=== PATIENT | female | born 1990 | race Caucasian/White ===

== ENCOUNTER 2016-11-29 13:53 | Emergency (ER) | payer BC ==
--- NOTE | 2016-11-29 14:40 | Emergency Department Record ---
History of Present Illness - General Chief complaint: Flank Pain Stated complaint: KIDNEY STONES? Time Seen by Provider: 11/29/16 14:39 Source: Patient Mode of Arrival: Ambulatory Limitations: No limitations - History of Present Illness Initial comments: 26 yo female presents with flank pain. She has a history or prior kidney stones about one year ago. The pain onset was this morning. It started on the right flank and now radiates down. She has some pain across the low back. No fevers. She has some associated nausea. No hematuria. She had renal stones last year in [place] that required stents and lithotripsy. Onset/Timin -: Hour(s) Location: LLQ, RLQ Radiation: L flank, R flank Severity: Moderate Severity scale (1-10): 6 Quality: Aching, Burning Consistency: Constant Improves with: None Worsens with: None LMP Date: 11/23/16 Gestational Age (wks) based on LMP: 0 Associated Symptoms: Nausea/vomiting - Related Data Home Medications Medication Instructions Recorded Confirmed Last Taken No Home Med [NO HOME MEDS] 11/29/16 11/29/16 Unknown Allergies Allergy/AdvReac Type Severity Reaction Status Date / Time No Known Drug Allergies Allergy Verified 11/29/16 14:24 Travel Screening - Travel/Exposure Within Last 30 Days Have you traveled within the last 30 days?: No - Travel/Exposure Within Last Year Have you traveled outside the [place] in the last year?: No - Additonal Travel Details Have you been exposed to anyone with a communicable illness?: No - Travel Symptoms Symptom Screening: None Review of Systems Constitutional: Denies: Chills, Fever, Malaise, Weakness Eyes: Denies: Eye discharge ENT: Denies: Congestion, Throat pain Respiratory: Denies: Cough Cardiovascular: Denies: Chest pain, Syncope Endocrine: Denies: Fatigue Gastrointestinal: Reports: Abdominal pain, Nausea, Vomiting. Denies: Diarrhea Genitourinary: Denies: Dysuria, Hematuria, Urgency Musculoskeletal: Denies: Arthralgia, Back pain, Neck pain Skin: Denies: Bruising, Change in color, Rash Neurological: Denies: Headache, Numbness, Weakness Psychiatric: Denies: Anxiety Hematological/Lymphatic: Denies: Blood Clots, Easy bleeding, Easy bruising, Swollen glands Past Medical History - SOCIAL HISTORY Smoking Status: Current every day smoker Alcohol Use: None Drug Use: None - RESPIRATORY Hx Respiratory Disorders: No - CARDIOVASCULAR Hx Cardio Disorders: No - NEURO Hx Neuro Disorders: No - GI Hx GI Disorders: No - Hx Kidney Stones: Yes (mutiple with stents) - ENDOCRINE Hx Diabetes: No Hx Thyroid Disease: No - MUSCULOSKELETAL Hx Musculoskeletal Disorders: No - PSYCH Hx Psych Problems: No - HEMATOLOGY/ONCOLOGY Hx Hematology/Oncology Disorders: No Family Medical History Any Significant Family History?: Yes Hx Cancer: Father Hx Diabetes: Mother Hx Heart Disease: Father, Mother, Grandparents Physical Exam - General General Appearance: Alert, Oriented x3, Cooperative, No acute distress Limitations: No limitations - Head Head exam: Normal inspection - Eye Eye exam: Normal appearance, PERRL. negative: Conjunctival injection, Periorbital swelling - ENT ENT exam: Normal exam, Mucous membranes moist Ear exam: Normal external inspection Nasal Exam: Normal inspection Mouth exam: Normal external inspection - Neck Neck exam: Normal inspection, Full ROM. negative: Tenderness - Respiratory Respiratory exam: Normal lung sounds bilaterally. negative: Respiratory distress - Cardiovascular Cardiovascular Exam: Regular rate, Normal rhythm, Normal heart sounds - GI/Abdominal GI/Abdominal exam: Soft - Rectal Rectal exam: Deferred - exam: Deferred - Extremities Extremities exam: Normal inspection, Full ROM, Normal capillary refill. negative: Pedal edema, Tenderness - Back Back exam: Reports: Normal inspection - Neurological Neurological exam: Alert, Normal gait, Oriented X3 - Psychiatric Psychiatric exam: Normal affect, Normal mood - Skin Skin exam: Dry, Intact, Normal color, Warm Course Vital Signs 11/29/16 14:18 Temperature 98.3 F Pulse Rate 76 Respiratory 20 Rate Blood Pressure 142/96 Pulse Ox 96 - Reevaluation(s) Reevaluation #1: UA is negative for HCG Few RBC's. 11/29/16 15:16 No acute changes on the CBC or CMP The CT is negative for any acute process 2mm non obstructing stone in the left kidney Her pain is well controlled DC home with instructions. 11/29/16 16:40 Medical Decision Making - Lab Data Result diagrams: 11/29/16 14:20 11/29/16 14:20 Disposition Disposition: Discharge Clinical Impression: Flank pain Disposition: Home, Self-Care Condition: (1) Good Instructions: Flank Pain (ED) Additional Instructions: Return if you have any return if pain, fever, vomiting or any new concerns Motrin for mild discomfort Forms: Patient Portal Access Time of Disposition: 16:44 Quality - Quality Measures Quality Measures: N/A - Blood Pressure Screening Does Patient Have Any of the Following: No Blood Pressure Classification: Hypertensive Reading Systolic Measurement: 142 Diastolic Measurement: 96 Screening for High Blood Pressure: < Pre-Hypertensive BP, F/U Documented > [ [id number]] Pre-Hypertensive Follow-up Interventions: Referral to alternative/primary care provider.
[2016-11-29 15:00] LABS: URINE APPEARANCE CLEAR; URINE BILIRUBIN NEGATIVE (NEGATIVE); URINE BLOOD SMALL (NEGATIVE); URINE COLOR YELLOW; URINE GLUCOSE (UA) NEGATIVE (NEGATIVE); URINE KETONE NEGATIVE (NEGATIVE); URINE LEUKOCYTE ESTERASE NEGATIVE (NEGATIVE); URINE NITRITE NEGATIVE (NEGATIVE); URINE PROTEIN NEGATIVE (NEGATIVE); URINE UROBILINOGEN 0.2 E.U./dL (0.20 - 1.00)
[2016-11-29] MEDS ORDERED: 0.9 % SODIUM CHLORIDE 1,000 ML BAG IV ONE (15:01)
[2016-11-29] MEDS ORDERED: KETOROLAC 30 MG/ML VIAL IVP ONE (15:01)
[2016-11-29] MEDS ORDERED: MORPHINE SULFATE 5 MG/ML PFS IVP ONE (15:01)
[2016-11-29] MEDS ORDERED: ONDANSETRON HCL IV 4 MG/2 ML VIAL IV ONE (15:01)
[2016-11-29 15:07] LABS: URINE BACTERIA FEW; URINE EPITHELIAL CELLS 0 - 2 (FEW); URINE WBC 0 - 2 (0-2/hpf)
[2016-11-29 15:11] LABS: BASO % 0.7 % (0-6); EOS % 1.5 % (0-6); GRAN % 57.5 % (47-80); HEMATOCRIT 42.9 % (35.0-47.0); HEMOGLOBIN 14.4 gm/dl (11.6-16.0); LYMPH % 33.8 % (16-45); MEAN CELL VOLUME 89.6 fl (81-97); MEAN CORPUSCULAR HEMOGLOBIN 30.1 pg (27-33); MEAN CORPUSCULAR HGB CONC 33.6 g/dl (32-36); MEAN PLATELET VOLUME 10.2 fl (7.4-10.4); MONO % 6.5 % (0-9); PLATELET COUNT 276 K/uL (130-400); RED BLOOD COUNT 4.79 M/uL (3.80-5.40); RED CELL DISTRIBUTION WIDTH 12.7 % (11.5-14.5); WHITE BLOOD COUNT W/O DIFF 6.8 K/uL (4.2-12.2)
[2016-11-29 15:52] LABS: ALB/GLOB RATIO 1.7 (1.1-1.8); ALBUMIN 4.7 g/dL (4.0-5.0); ALKALINE PHOSPHATASE 78 U/L (35-104); ALT/SGPT 13 U/L (<33); AST/SGOT 16 U/L (10.0-35.0); BLOOD UREA NITROGEN 33.3 mg/dL (12.6-42.6); CREATININE 0.8 mg/dL (0.5-0.9); EST GLOMERULAR FILTRATION RATE > 60 mL/min; GLUCOSE,RANDOM 92 mg/dL (74-109); LIPASE 32 U/L (13-60); TOTAL PROTEIN 7.5 g/dL (6.6-8.7)
--- NOTE | 2016-11-30 10:31 | CT SCAN REPORT ---
EXAM: CT OF THE ABDOMEN AND PELVIS WITHOUT CONTRAST HISTORY: FLANK PAIN. TECHNIQUE: CT of the abdomen and pelvis was performed without oral or IV contrast. This limits evaluation of bowel and solid visceral organs. Comparison: None. FINDINGS: Limited evaluation of the lung bases is unremarkable. The osseous structures are grossly intact. Limited evaluation of the liver, spleen, adrenal glands, and pancreas is unremarkable. The gallbladder is present. There is a nonobstructing 2 mm left renal calculus. Mild right sided hydronephrosis. No discreet right urinary tract calculus. no hydronephrosis. Normal appendix. Abundant stool in the colon. Bilateral ovarian follicles. IMPRESSION: NONOBSTRUCTING 2 MM LEFT RENAL CALCULUS. NO OBSTRUCTING CALCULUS OR HYDRONEPHROSIS. JOB NUMBER: [id number] MTDD
== END 2016-11-29 16:55 | disposition home or self-care (01) ==
LOC: ER 13:53
DX: N20.0 Calculus of kidney (principal); R10.31 Right lower quadrant pain; R11.2 Nausea with vomiting, unspecified; Z87.442 Personal history of urinary calculi
CPT/HCPCS: 99284 ×2; 96374; 96375; 96361; 83690; 85025; 80053; 81001; 81025; 74176; J1885; J2405; J2270; J7030